=== PATIENT | female | born 1950 | race Caucasian/White ===

== ENCOUNTER 2016-09-08 20:10 | Emergency (ER) | payer MEDICARE, MEDICAID ==
--- NOTE | 2016-09-08 21:22 | RAD ---
Indication: Cough, hemoptysis. 2 views of the chest demonstrate no mediastinal shift. Heart is of normal size and configuration. Lung suazo are clear. When compared to previous exam of January 05, 2015 no significant change is noted. IMPRESSION: No active cardiopulmonary disease is noted.
--- NOTE | 2016-09-08 22:34 | UC ---
Respiratory Complaint HPI - HPI Summary HPI Summary: The patient comes in today for: 1. Cough: Onset: 4 days ago. Palliative/provocative: Taking her bra off helped her breath better. Quality: [place]: Lungs. Severity: under her shoulder, and retrosternal--Ache. Time: present the last two days. Associated symptoms: Cough production: Yellow with specks of blood. Fever at home: 101 yesterday. Rhinitis: None. Heart disease: "Thickening of my heart [place]." * - History of Current Complaint Chief Complaint: UCRespiratory Stated Complaint: COUGH,BLOODY MUCOUS Time Seen by Provider: 09/08/16 22:27 Hx Obtained From: Patient Hx Last Menstrual Period: "years ago." Hyst. ?: No - Allergies/Home Medications Allergies/Adverse Reactions: Allergies Allergy/AdvReac Type Severity Reaction Status Date / Time Amoxicillin Allergy Severe redness Verified 09/08/16 20:25 and edema Cephalexin [From Keflex] Allergy Itching Verified 09/08/16 20:25 Cortisone Allergy Swelling Verified 09/08/16 20:25 Doxycycline Allergy Vomiting Verified 09/08/16 20:25 Erythromycin Allergy Swelling Verified 09/08/16 20:25 Of Face,Lips,& Throat Fentanyl Allergy Tachycardia Verified 09/08/16 20:27 Latex Allergy Rash Verified 09/08/16 20:25 Morphine Allergy Tachcardia Verified 09/08/16 20:25 and Nausea Penicillins Allergy Itching Verified 09/08/16 20:27 Sulfa Drugs Allergy Hives Verified 09/08/16 20:25 Tetanus Toxoid Allergy Swelling Verified 09/08/16 20:25 Tetracycline Allergy Unknown Verified 09/08/16 20:25 Reaction Details iv dye Allergy Shortness Uncoded 09/08/16 20:25 of Breath PMH/Surg Hx/FS Hx/Imm Hx Previously Healthy: No - bilateral knee pain, constipation. Endocrine History Of: Denies: Diabetes, Thyroid Disease, Hyperthyroidism, Hypothyroidism, Dyslipidemia Cardiovascular History Of: Denies: Cardiac Disorders, Hypertension, Pacemaker/ICD, Myocardial Infarction , Congestive Heart Failure, Atrial Fibrillation, Deep Vein Thrombosis, Bleeding Disorders Respiratory History Of: Denies: COPD, Asthma, Bronchitis, Pneumonia, Pulmonary Embolism GI/ History Of: Reports: Ulcer Denies: Gastroesophageal Reflux, Gastrointestinal Bleed, Gall Bladder Disease , Kidney Stones, Diverticulitis, Renal Disease, Urosepsis Neurological History Of: Denies: TIA, CVA, Dementia, Seizures, Migraine Psychological History Of: Denies: Anxiety, Depression, Bipolar Disorder, Schizophrenia, Post Traumatic Stress Disorder Cancer History Of: Denies: Lung Cancer, Colorectal Cancer, Breast Cancer, Prostate Cancer, Cervical Cancer Other History Of: Negative For: HIV, Hepatitis B, Hepatitis C - Surgical History Surgical History: Yes Surgery Procedure, Year, and Place: hysterectomy cystocele age 24 yrs; appy, cholecystectomy at age 31 yrs;. tonsilectomy age 18 yrs. 3 knee surgeries: 1 left, 2 right. 5 hand surgieries, right thumb. rectocele. vocal cord growth removal- benign. Throat surgery. - Family History Known Family History: Positive: Cardiac Disease, Hypertension - Social History Occupation: Unemployed Alcohol Use: None Substance Use Type: Prescribed Substance Use Comment - Amount & Last Used: oxycodone and oxycontin Smoking Status (MU): Heavy Every Day Tobacco Smoker Type: Cigarettes Amount Used/How Often: 5 cig/day Length of Time of Smoking/Using Tobacco: ~ 50 Years Have You Smoked in the Last Year: Yes Household Exposure Type: Cigarettes - Immunization History Most Recent Influenza Vaccination: Not utd Most Recent Pneumonia Vaccination: 2010 Review of Systems Constitutional: Negative Skin: Negative Eyes: Negative ENT: Negative Respiratory: Cough Cardiovascular: Chest Pain Gastrointestinal: Negative Genitourinary: Negative All Other Systems Reviewed And Are Negative: Yes Physical Exam Triage Information Reviewed: Yes Appearance: Well-Appearing, No Pain Distress, Well-Nourished Vital Signs: Initial Vital Signs Temp 99.3 F 09/08/16 20:30 Pulse 93 09/08/16 20:30 Resp 22 09/08/16 20:30 BP 150/67 09/08/16 20:30 Pulse Ox 97 09/08/16 20:30 Vital Signs Reviewed: Yes Eyes: Positive: Conjunctiva Clear. Negative: Discharge ENT: Positive: Hearing grossly normal. Negative: Pharyngeal erythema, Nasal congestion, Nasal drainage, TM bulging, TM dull, TM red, Tonsillar swelling, Tonsillar exudate Dental: Negative: Gross Decay/Caries @, Dental Fracture @ Neck: Positive: Supple, Nontender, No Lymphadenopathy. Negative: Nuchal Rigidity Respiratory: Positive: No respiratory distress, No accessory muscle use, Rhonchi , Wheezing Cardiovascular: Positive: RRR, No Murmur Abdomen Description: Positive: Nontender, No Organomegaly, Soft. Negative: Distended, Guarding Musculoskeletal: Positive: Strength Intact, ROM Intact Neurological: Positive: Alert, Muscle Tone Normal Psychological: Positive: Age Appropriate Behavior, Consolable Skin: Negative: rashes, breakdown UC Diagnostic Evaluation - Laboratory O2 Sat by Pulse Oximetry: 97 Re-Evaluation - Re-Evaluation First Eval Change: Improved - She states that the albuterol/ipratropium helped her. Lungs are sounding as though more air is being moved, but less wheezing. Respiratory Course/Dx - Differential Dx/Diagnosis Provider Diagnoses: Bronchospasm. high blood pressure. Discharge - Discharge Plan Condition: Stable Disposition: HOME Patient Education Materials: Upper Respiratory Infection (ED) Referrals: Quin Andersen PA [Primary Care Provider] - 1 Week (Please see your primary care provider in about a week to see how well you are doing. If you get worse, please be seen sooner.) Additional Instructions: Please see your primary care provider later this week to see how well your cough , and breathing is, as well as your coughing up of blood and blood pressure. If you get worse, please be seen sooner in the Er.
[2016-09-08] MEDS ORDERED: Albuterol 2.5 MG/3 ML NEB.SOL* (0.083%) INH ONE (22:37)
[2016-09-08] MEDS ORDERED: Ipratropium 0.5MG/2.5ML NEB* 0.5 MG/2.5 ML NEB.SOLN INH ONE (22:37)
[2016-09-09 00:05] VITALS: BP 141/56
== END 2016-09-09 00:03 | disposition home or self-care (01) ==
LOC: UCCORT 20:10
DX: J98.01 Acute bronchospasm (principal); R03.0 Elevated blood-pressure reading, without diagnosis of hypertension; Z90.49 Acquired absence of other specified parts of digestive tract; Z88.1 Allergy status to other antibiotic agents; Z88.5 Allergy status to narcotic agent; Z88.0 Allergy status to penicillin; Z88.2 Allergy status to sulfonamides; F17.210 Nicotine dependence, cigarettes, uncomplicated
CPT/HCPCS: 71020; 99212; G0463; J7644